=== PATIENT | female | born 1975 | race Caucasian/White ===

== ENCOUNTER 2018-06-05 08:48 | Emergency (ER) | payer SELFPAY ==
[~2018-06-05] VITALS: Ht 160 cm; Wt 53.6 kg
[2018-06-05 08:53] VITALS: Ht 160 cm; Wt 53.6 kg
[2018-06-05 09:24] LABS: BASOPHILS 0.2 % (0-2); EOSINOPHILS 1.3 % (0-7); HEMATOCRIT 42.4 % (36.0-48.0); HEMOGLOBIN 14.7 g/dL (12-16); IMMATURE GRANULOCYTES 0.1 % (0-5); LYMPHOCYTES 26.5 % (15-50); MCH 32.8 pg (26.0-34.0); MCHC 34.7 g/dL (31.0-37.0); MCV 94.6 fL (80.0-100.0); MEAN PLATELET VOLUME 11.1 fL (7.4-10.4); MONOCYTES 6.2 % (2-11); NEUTROPHILS 65.7 % (40-80); PLATELET COUNT 251 10x3/uL (130-400); RBC 4.48 10x6/uL (4.00-5.40); RDW 12.5 % (11.5-14.5); WBC 8.4 10x3/uL (4.8-10.8)
[2018-06-05 09:28] LABS: ALBUMIN 3.9 g/dL (3.4-5.0); ANION GAP 11.9 mmol/L (8-16); BILIRUBIN - TOTAL 0.74 mg/dL (0.2-1.3); CALCIUM 9.2 mg/dL (8.5-10.1); CARBON DIOXIDE 28.7 mmol/L (21.0-32.0); CREATININE - SERUM 0.9 mg/dL (0.6-1.3); POTASSIUM - SERUM 3.6 mmol/L (3.5-5.1); PROTEIN - SERUM 6.8 g/dL (6.4-8.2)
[2018-06-05 09:50] LABS: AMYLASE - SERUM 58 U/L (25-115); LIPASE 176 U/L (73-393)
[2018-06-05 09:56] LABS: TROPONIN-I < 0.017 ng/mL (0.000-0.060)
[2018-06-05 10:24] LABS: APPEARANCE HAZY (CLEAR); BACTERIA MODERATE /hpf (NONE SEEN); BILIRUBIN NEGATIVE (NEGATIVE); COLOR YELLOW (YELLOW); EPITHELIAL CELLS 0-5 /hpf (0-5); GLUCOSE NEGATIVE (NEGATIVE); KETONE NEGATIVE (NEGATIVE); MUCUS <1+ /lpf (NONE SEEN); NITRITE NEGATIVE (NEGATIVE); PROTEIN NEGATIVE (NEGATIVE); SPECIFIC GRAVITY 1.025 (1.005-1.020); UROBILINOGEN NORMAL (NORMAL); WHITE CELLS - URINE OCC /hpf (0-5)
[2018-06-05] MEDS ORDERED: FLAGYL500 MG PO (10:34)
[2018-06-05] MEDS ORDERED: FLORASTOR250 MG PO (10:34)
[2018-06-05] MEDS ORDERED: LEVAQUIN750 MG PO (10:34)
[2018-06-05 11:32] VITALS: BP 119/56
== END 2018-06-05 11:32 | disposition home or self-care (01) ==
LOC: D.ER 08:48
PROVIDERS: Family Medicine
DX: K52.9 Noninfective gastroenteritis and colitis, unspecified (principal); R10.11 Right upper quadrant pain; R16.0 Hepatomegaly, not elsewhere classified; N39.0 Urinary tract infection, site not specified; F17.200 Nicotine dependence, unspecified, uncomplicated; R00.1 Bradycardia, unspecified

== ENCOUNTER 2018-06-10 16:07 | Emergency (ER) | payer SELFPAY ==
[~2018-06-10] VITALS: Ht 160 cm; Wt 50.0 kg
[~2018-06-10 16:07] MED LIST: FLAGYL500 MG PO; FLORASTOR250 MG PO; LEVAQUIN750 MG PO
[2018-06-10 16:17] VITALS: Ht 160 cm; Wt 50.0 kg
[2018-06-10 18:12] VITALS: BP 105/70
== END 2018-06-10 18:12 | disposition home or self-care (01) ==
LOC: D.ER 16:07
DX: R10.11 Right upper quadrant pain (principal); F17.200 Nicotine dependence, unspecified, uncomplicated

== ENCOUNTER 2018-10-13 09:05 | Emergency (ER) | payer SELFPAY ==
[~2018-10-13] VITALS: Ht 160 cm; Wt 53.6 kg
[2018-10-13 09:32] VITALS: Ht 160 cm; Wt 53.6 kg
[2018-10-13 10:00] LABS: BASOPHILS 0.2 % (0-2); EOSINOPHILS 2.2 % (0-7); HEMATOCRIT 42.2 % (36.0-48.0); HEMOGLOBIN 14.2 g/dL (12-16); LYMPHOCYTES 32.9 % (15-50); MCH 31.3 pg (26.0-34.0); MCHC 33.6 g/dL (31.0-37.0); MEAN PLATELET VOLUME 10.8 fL (7.4-10.4); MONOCYTES 8.6 % (2-11); NEUTROPHILS 56.1 % (40-80); PLATELET COUNT 232 10x3/uL (130-400); RBC 4.54 10x6/uL (4.00-5.40); RDW 12.6 % (11.5-14.5)
[2018-10-13 10:14] LABS: ALBUMIN 3.4 g/dL (3.4-5.0); ALKALINE PHOSPHATASE 72 U/L (46-116); ALT (SGPT) 21 U/L (10-68); BILIRUBIN - TOTAL 0.37 mg/dL (0.2-1.3); CALC OSMOLALITY 285 mosm/kg (275-300); CALCIUM 8.5 mg/dL (8.5-10.1); CARBON DIOXIDE 26.7 mmol/L (21.0-32.0); CHLORIDE - SERUM 110 mmol/L (98-107); CREATININE - SERUM 0.7 mg/dL (0.6-1.3); GLUCOSE 91 mg/dL (74-106); POTASSIUM - SERUM 3.9 mmol/L (3.5-5.1); PROTEIN - SERUM 6.5 g/dL (6.4-8.2); SODIUM 144 mmol/L (136-145); UREA NITROGEN 9 mg/dL (7-18); eGFR NON AFRICAN AMERICAN > 90 mL/min (90-120)
[2018-10-13] MEDS ORDERED: TYLENOL W/CODEI1 TAB PO (10:54)
[2018-10-13] MEDS ORDERED: VIBRAMYCIN 100100 MG PO (10:54)
[2018-10-13] MEDS ORDERED: PHENERGAN25 M1 PO (10:54)
[2018-10-13] MEDS ORDERED: ALBUTEROL SULF8.5 GM INH (11:00)
[2018-10-13 12:00] VITALS: BP 121/58
== END 2018-10-13 12:01 | disposition home or self-care (01) ==
LOC: D.ER 09:05
PROVIDERS: Emergency Medicine
DX: J06.9 Acute upper respiratory infection, unspecified (principal); J40 Bronchitis, not specified as acute or chronic; M79.18 Myalgia, other site; R50.9 Fever, unspecified

== ENCOUNTER 2019-02-07 14:46 | Emergency (ER) | payer MEDICAID ==
[~2019-02-07] VITALS: Ht 160 cm; Wt 50.5 kg
[~2019-02-07 14:46] MED LIST changes: +ALBUTEROL SULF8.5 GM INH; +PHENERGAN25 M1 PO; +TYLENOL W/CODEI1 TAB PO; +VIBRAMYCIN 100100 MG PO
[2019-02-07 15:01] VITALS: Ht 160 cm; Wt 50.5 kg
[2019-02-07] MEDS ORDERED: VISTARIL50 MG PO (17:51)
[2019-02-07] MEDS ORDERED: MEDROL DOSE PACK4 MG PO (17:51)
[2019-02-07 18:05] VITALS: BP 118/72
== END 2019-02-07 18:06 | disposition home or self-care (01) ==
LOC: D.ER 14:46
DX: L24.7 Irritant contact dermatitis due to plants, except food (principal)